=== PATIENT | female | born 1940 | race Caucasian/White ===

== ENCOUNTER 2017-02-01 07:12 | Inpatient (IN) | payer OTHER ==
[2017-01-17 17:35] VITALS: BMI 36.0
--- NOTE | 2017-01-31 12:13 | PAT Medication Instructions ---
Service Date Jan 31, 2017. Current Home Medication List Acetaminophen (Tylenol Arthritis Ext Rel), 2 CAP PO QAM PRN for Pain Aspirin (Aspirin Ec), 81 MG PO QAM Cholecalciferol (Vitamin D), 1 TAB PO QAM Gabapentin (Gabapentin), 1,200 MG PO HS Hctz/Lisinopril (Lisinopril/Hctz 10/12.5 Mg), 1 TAB PO QAM Omeprazole (Prilosec), 20 MG PO QAM Sertraline Hcl (Zoloft), 50 MG PO HS Simvastatin (Zocor), 40 MG PO HS Medication Instructions For Your Scheduled Surgery Aspirin (Aspirin Ec), 81 MG PO QAM (hold two weeks prior to surgery per surgeon instructions) - Hold the following medications the morning of surgery: Hctz/Lisinopril (Lisinopril/Hctz 10/12.5 Mg), 1 TAB PO QAM Cholecalciferol (Vitamin D), 1 TAB PO QAM - Take the following medications the morning of surgery with a sip of water: Omeprazole (Prilosec), 20 MG PO QAM Acetaminophen (Tylenol Arthritis Ext Rel), 2 CAP PO QAM PRN for Pain (if needed) - Take the following medications as scheduled the night before surgery: Sertraline Hcl (Zoloft), 50 MG PO HS Simvastatin (Zocor), 40 MG PO HS Gabapentin (Gabapentin), 1,200 MG PO HS If you have any questions please call us at [phone] or [phone] ( [place]) or [phone]
[2017-02-01] VITALS (8 sets, daily range): BP systolic 108–170; BP diastolic 69–104; PULSE 76–96; TEMP 36.4–36.6; O2SAT 91–96; Ht 152.4 cm; Wt 87.1 kg
[~2017-02-01] VITALS: Ht 152.4 cm; Wt 87.1 kg
[~2017-02-01 07:12] MED LIST: ACET1TAB84 PO; ASPI81TA28 PO; CEFAZOLIN 2000 MG/60 ML D5W IV SCH; CHOL100010 PO; CeleBREX 200 MG CAP PO SCH; LACTATED RINGER'S 1000ML 1,000 ML IV SCH; LSN/10125 PO; NRN300 PO; PREGABALIN 75 MG CAP PO SCH; PRLSR20 PO; SERT1TAB71 PO; SIMV40TA2 PO
[2017-02-01] MEDS ORDERED: ATROPINE SULFATE 0.1 MG/ML 5ML SYR IV PRN (07:30)
[2017-02-01] MEDS ORDERED: ONDANSETRON INJ 2 MG/ML 2 ML VIAL IV PRN ×2 (07:30→11:15)
[2017-02-01] MEDS ORDERED: EpHEDrine SULFATE INJ 50 MG/ML AMP IV PRN (07:30)
[2017-02-01] MEDS ORDERED: FENTANYL CITRATE INJ 50 MCG/1 ML 2 ML VIAL IV PRN (07:30)
[2017-02-01] MEDS ORDERED: HYDROmorphone INJ 0.5 MG/0.5 ML SYR IV PRN (07:30)
--- NOTE | 2017-02-01 08:14 | HISTORY & PHYSICAL EXAMINATION ---
DATE OF ADMISSION: 02/01/2017 CHIEF COMPLAINT: Low back pain and bilateral hip pain, with neurogenic claudication. HISTORY OF PRESENT ILLNESS: This 76-year-old woman presents for evaluation of the above. She has symptoms consistent with neurogenic claudication and radicular pain in the lower extremities due to lumbar spinal stenosis. She has failed to respond to extensive conservative treatment including physical therapy and epidural injections. Her workup and imaging have demonstrated she has grade 1 degenerative spondylolisthesis L4-L5 with associated spinal stenosis. Due to the symptoms her quality of life has been severely curtailed; she cannot walk or stand for any significant length of time. Due to failure of conservative treatments, she desires surgery. She denies recent malignancy or incontinence. PAST MEDICAL HISTORY: Acid reflux, gallbladder disease, hiatal hernia, hyperlipidemia, hypertension, obesity, sleep apnea and spinal stenosis. PAST SURGICAL HISTORY: Surgical mesh implant, bladder repair, , hysterectomy and cholecystectomy. ALLERGIES: None. MEDICATIONS: Lisinopril, simvastatin, gabapentin, sertraline, omeprazole, baby aspirin and iron supplements. SOCIAL HISTORY: The patient is single and does not use alcohol or tobacco. FAMILY HISTORY: Notable for arthritis, cardiovascular disease, hypertension, diabetes and high cholesterol. REVIEW OF SYSTEMS: Notable for some fatigue, occasional abdominal pain, urge incontinence. She denied chest pain, shortness of breath or dyspnea on exertion. PHYSICAL EXAMINATION: The patient stands 60 inches tall and weighs 200 pounds with a BMI of 39. She answers questions appropriately and has normal affect. She stands and walks with a deliberate gait with no kael ataxia. She has somewhat limited lumbar range of motion due to body habitus and discomfort. She has negative straight leg raise bilaterally, nontender hip range of motion in flexion and internal rotation. She has 5/5 strength in motor testing of both lower extremities. She has symmetrically diminished DTRs of the patella. No clonus of the ankles. She has palpable distal pulses in lower extremities. Normal appearing skin of the lumbar spine. No obvious scoliosis or skin lesions. She has regular rate and rhythm on auscultation of heart and clear lungs to auscultation bilaterally. She has intact sensation to light touch in both lower extremities and in all dermatomes. X-rays and MRI were reviewed as above. She has grade 1 degenerative spondylolisthesis L4-L5 and spinal stenosis L4-L5. ASSESSMENT AND PLAN: L4-L5 spinal stenosis and spondylolisthesis. I recommended a L4-L5 decompression with fusion procedure. Risks were reviewed. The patient is agreeable and desires to proceed. IVANIA
[2017-02-01] MEDS ORDERED: MIDAZOLAM HCL 1 MG/ML 2ML VIAL ONE (08:48)
[2017-02-01] MEDS ORDERED: FENTANYL CITRATE INJ 50 MCG/1 ML 2 ML VIAL ONE ×3 (08:48→10:15)
[2017-02-01] MEDS ORDERED: BUPIVACAINE/EPINEPHRINE 0.5% MPF 1:200,000 30 ML VIAL ONE (09:12)
[2017-02-01] MEDS ORDERED: THROMBIN FOR SOLN 20000 UNIT KIT ONE (09:12)
[2017-02-01] MEDS ORDERED: THROMBIN 5000 UNITS KIT ONE (09:12)
[2017-02-01] MEDS ORDERED: BACITRACIN 50000 UNIT VIAL ONE (09:13)
[2017-02-01] MEDS ORDERED: HEPARIN SOD (PORCINE) 1000 UNIT/ML 10 ML VIAL ONE (09:13)
[2017-02-01] MEDS ORDERED: HYDROmorphone INJ 2 MG/ML SYR/VIAL ONE ×2 (10:09→11:17)
[2017-02-01] MEDS ORDERED: FLOSEAL HEMOSTATIC MATRIX 10ML TOP ONE (10:53)
[2017-02-01] MEDS ORDERED: SODIUM CHLORIDE 0.9% 1000ML 1,000 ML IV SCH (11:06)
--- NOTE | 2017-02-01 11:06 | [facility] Post Operative Brief Note ---
Immediate Operative Summary Operative Date Feb 01, 2017. Pre-Operative Diagnosis L4-L5 spinal stenosis and spondylolisthesis Post-Operative Diagnosis same as pre-operative Procedure(s) Performed L4-L5 Decompression and Transforaminal Lumbar Interbody Fusion, Use of Arteriocyte and Infuse Surgeon Dr. Luis Carlos Garcia Mon[place] Carver Surgeon(s) Jhonatan Block PA-C Estimated Blood Loss 125ml Findings dict Specimens none per surgeon
[2017-02-01] MEDS ORDERED: LIDOCAINE HCL 2% 2 ML VIAL (20MG/ML) ONE (11:07)
[2017-02-01] MEDS ORDERED: METOPROLOL TARTRATE 1 MG/ML VIAL ONE (11:07)
[2017-02-01] MEDS ORDERED: PROPOFOL IV EMULSION 10 MG/ML 20 ML VIAL IV ONE (11:07)
[2017-02-01] MEDS ORDERED: ROCURONIUM BROMIDE 10 MG/ML 5 ML VIAL ONE (11:07)
[2017-02-01] MEDS ORDERED: LABETALOL HCL IV 5 MG/ML 20ML IV ONE (11:07)
[2017-02-01] MEDS ORDERED: DEXAMETHASONE SOD INJ 4 MG/ML VIAL ONE (11:07)
[2017-02-01] MEDS ORDERED: ONDANSETRON INJ 2 MG/ML 2 ML VIAL ONE ×2 (11:07→11:20)
[2017-02-01] MEDS ORDERED: MoRPHine SULFATE 1 MG/ML 50 ML PCA CASS IV PRN (11:15)
[2017-02-01] MEDS ORDERED: ACETAMINOPHEN IV 100 ML IV PRN (11:15)
[2017-02-01] MEDS ORDERED: NALOXONE HCL 0.4 MG/1 ML VIAL/CARP IV PRN (11:15)
[2017-02-01] MEDS ORDERED: ALUMINUM/MAGNESIUM SUSP 30 ML UDC PO PRN (11:15)
[2017-02-01] MEDS ORDERED: METOCLOPRAMIDE HCL INJ 5 MG/ML 2 ML VIAL IV PRN (11:15)
[2017-02-01] MEDS ORDERED: MAGNESIUM HYDROXIDE SUSP 30 ML UDC PO PRN (11:15)
[2017-02-01] MEDS ORDERED: hydrOXYzine HCL 25 MG TAB PO PRN (11:15)
[2017-02-01] MEDS ORDERED: DC PCA PRN (11:15)
[2017-02-01] MEDS ORDERED: PROMETHAZINE HCL INJ 12.5 MG in SODIUM CHLORIDE 0.9% 50ML 50 ML IV PRN (11:15)
[2017-02-01] MEDS ORDERED: SOD PHOSPHATE/SOD BIPHOSPHATE ENEMA 132 ML BTL PR PRN (11:15)
[2017-02-01] MEDS ORDERED: LORAZEPAM INJ 0.5 MG in SYRINGE 0 ML IV PRN (11:15)
[2017-02-01] MEDS ORDERED: FAMOTIDINE 20 MG TAB PO PRN (11:15)
[2017-02-01] MEDS ORDERED: LORAZEPAM 0.5 MG TAB PO PRN (11:15)
[2017-02-01] MEDS ORDERED: BISACODYL 10 MG SUPP PR PRN (11:15)
[2017-02-01] MEDS ORDERED: GLYCOPYRROLATE INJ 0.2 MG/ML VIAL ONE (11:20)
[2017-02-01] MEDS ORDERED: NEOSTIGMINE METHYLSULFATE 1 MG/ML 10ML VIAL ONE (11:20)
[2017-02-01] MEDS ORDERED: MoRPHine SULFATE 1 MG/ML 50 ML PCA CASS ONE (11:52)
--- NOTE | 2017-02-01 11:56 | DIAGNOSTIC IMAGING REPORT ---
LUMBAR SPINE, INTRAOPERATIVE FLUOROSCOPY HISTORY: L4-5 decompression and fusion. FLUOROSCOPY TIME: 16 seconds. FINDINGS: Intraoperative fluoroscopy was provided for the lumbar spine. 2 fluoroscopic spot images were obtained. L4-L5 posterior decompression and fusion. The hardware appears intact. IMPRESSION: Fluoroscopy provided for a L4-5 posterior decompression and fusion. Electronically signed by: Marvin Salazar M.D. 02/01/2017 11:54 AM Dictated Date/Time: 02/01/2017 11:53 AM
--- NOTE | 2017-02-01 12:52 | Anesthesiology Progress Note ---
Anesthesia Post Op Note Date & Time Feb 01, 2017 at 12:51 Vital Signs Pain Intensity: 5 Vital Signs Past 12 Hours Date Time Temp Pulse Resp B/P Pulse Ox O2 Delivery O2 Flow Rate FiO2 02/01/17 12:40 83 16 157/85 93 Nasal Cannula 4 02/01/17 12:30 36.4 78 16 153/92 92 Nasal Cannula 4 02/01/17 12:20 70 16 137/93 93 Nasal Cannula 4 02/01/17 12:10 72 14 163/106 93 Nasal Cannula 4 02/01/17 12:00 75 14 153/84 96 Mask 10 02/01/17 11:50 80 16 176/79 94 Mask 10 02/01/17 11:42 36.6 86 20 169/83 92 Mask 10 02/01/17 08:12 36.6 92 18 152/98 93 Room Air Notes Mental Status: alert / awake / arousable, participated in evaluation Pt Amnestic to Procedure: Yes Nausea / Vomiting: adequately controlled Pain: adequately controlled Airway Patency, RR, SpO2: stable & adequate BP & HR: stable & adequate Hydration State: stable & adequate Anesthetic Complications: no major complications apparent
[2017-02-01] MEDS: SODIUM CHLORIDE 0.9% 1000ML 1,000 ML IV SCH ×2 (13:48→23:18)
--- NOTE | 2017-02-01 14:07 | OPERATIVE REPORT ---
DATE OF OPERATION: 02/01/2017 PREOPERATIVE DIAGNOSES: 1. L4-L5 spinal stenosis. 2. L4-L5 degenerative spondylolisthesis -- grade 1. POSTOPERATIVE DIAGNOSIS: Same. PROCEDURES: 1. L4 laminectomy with bilateral L4-L5 medial facetectomies. 2. Nonsegmental pedicle screw instrumentation -- bilateral L4 and L5 with K2M [place] pedicle screws. 3. Posterolateral fusion L4-L5 -- bilateral with Infuse BMP on a collagen sponge, tricalcium phosphate, local bone, bone putty and bone marrow aspirate. 4. Right iliac crest bone marrow aspiration, stem cell concentration with stem cell concentration system and application of bone graft. SURGEON: Dr. Wright. CASKET LINER: Jhonatan Block PA-C. Please note he participated in all portions of the procedure and was critical for performance of procedure, participated in positioning, prepping, draping, retraction, and wound closure. ANESTHESIA: General endotracheal anesthesia. COMPLICATIONS: None. ESTIMATED BLOOD LOSS: Minimal, bleeding was 100 mL. OPERATION AND FINDINGS: PROCEDURE: After identification of patient and operative level, she was brought to the OR where she underwent induction of general anesthesia. She was then positioned prone on Jasvir OR table with all bony prominences well padded. Care was taken to avoid pressure on the periorbital area. Lumbosacral area was sterilely prepped and draped in usual fashion. Antibiotics were administered. Time-out was performed. Level was confirmed and skin incision was localized with lateral fluoroscopy and a spinal needle. I infiltrated the skin with 0.5% Marcaine with epinephrine, made skin incision over the spinous process of L4-L5 and exposed the L4-L5 interlaminar windows. I placed Gelpi retractors, confirmed level with fluoroscopy and marked the operative level. I then did a midline laminectomy of L4 with removal of spinous process lamina and ligamentum flavum. I then used an osteotome to remove the medial facets at L4-5 which were markedly hypertrophied. I then completed decompression with Kerrisons reconfirmed level with screw placement. I placed screws bilaterally at L4 and L5 with K2M [place] pedicle screws. Screws had reasonable purchase. She was noted to be slightly osteopenic. I then lowered the Felix frame to restore lordosis, applied rods and endcaps from L4-L5 bilaterally. I final tightened all endcaps and decorticated transverse process of L4-L5 with high speed bur. After decortication I obtained bone marrow aspirate from the right iliac crest via separate stab incision with a Jamshidi needle concentrate with the stem cell concentration and applied to bone graft medical physicist. I then packed the lateral gutters bilaterally with bone graft mixture containing Infuse BMP on a collagen sponge, tricalcium phosphate, bone marrow aspirate, local bone and bone putty. I then placed JOHN drain deep and closed in layered fashion. I did irrigate prior to bone grafting. Please note that during closure it was noted that the counts were incorrect. There was 1 missing Ray-Tima, fluoroscopy was brought in and it was noted to be packed in with bone graft. I then opened the suture line and removed the Ray-Tima, redid the counts which were correct and then reclosed. Final counts were correct and repeat final x-rays confirmed there was no further Ray-Tima visible in the field on biplanar fluoroscopy. The patient was extubated and brought to PACU in stable condition. I attest to the content of the Intraoperative Record and any orders documented therein. Any exceptio ns are noted below.
--- NOTE | 2017-02-01 15:46 | Progress Note ---
Progress Note Date of Service Feb 01, 2017. Progress Note Patient was seen and evaluated with Sarah CASTRO. Patient is status post lumbar surgery day 1. Pain is controlled, no chest pain, nausea, vomiting,fever, chills, Exam: Gen- AAOX3, no distress Lungs- No wheezing, clear Heart-s1, s2 normal, no murmurs Back- s/p surgery Ext- no edema A/P 1. S/P Lumbar surgery -POD # 0 -Pain control, PT/OT per primary team -H & H monitoring 2. HTN -Continue with home meds 3. GERD 4. JONNY 5. Hyperlipidemia 6. DVT prophylaxis -SCDS/TEDS per primary team Agree with A/P of Sarah CASTRO
[2017-02-01] MEDS: DEXAMETHASONE INJ 6 MG in SYRINGE 0 ML IV SCH (18:14)
[2017-02-01] MEDS: CEFAZOLIN IV 2,000 MG in DEXTROSE 5% 50ML 50 ML IV SCH (18:14)
--- NOTE | 2017-02-01 19:57 | Medical Consult ---
Consultation Date of Consultation: Feb 01, 2017. ~ 14:30 Attending Physician: Luis Carlos Wright M.D. Reason for Consultation: Post Op Medical Management History of Present Illness 76 year old female s/p L4-5 decompression and fusion today by Dr. Wright. Patient has been having increasing low back pain with radiation into the hips and lower extremities. She failed outpatient conservative measures and therefore presented for the planned procedure today. Post operatively the patient is doing well. She reports her pain is well controlled. She is somewhat lethargic but arouses to verbal stimuli. She denies chest pain and shortness of breath. No lightheadedness or dizziness. She denies abdominal pain and nausea. She denies numbness or tingling to the lower extremities. Past Medical/Surgical History Medical Problems: (1) Depression Status: Chronic (2) GERD (gastroesophageal reflux disease) Status: Chronic (3) HLD (hyperlipidemia) Status: Chronic (4) HTN (hypertension) Status: Chronic Surgical Problems: (1) H/O bladder repair surgery Status: Chronic (2) History of hysterectomy Status: Chronic (3) Hx of cholecystectomy Status: Chronic Family History FH: [place] (myocardial infarction) MOTHER Social History Smoking Status: Never Smoker Alcohol Use: occasionally Allergies Coded Allergies: No Known Allergies (Unverified , 02/01/17) Home Medications Vitamin D (Cholecalciferol) 1,000 Unit Tab 1 Tab PO QAM Tylenol Arthritis Ext Rel (Acetaminophen) 650 Mg Cplt 2 Cap PO QAM PRN Aspirin Ec (Aspirin) 81 Mg Tab 81 Mg PO QAM Zocor (Simvastatin) 40 Mg Tab 40 Mg PO HS Zoloft (Sertraline Hcl) 50 Mg Tab 50 Mg PO HS Prilosec (Omeprazole) 20 Mg Capcr 20 Mg PO QAM Lisinopril/Hctz 10/12.5 Mg (HCTZ/Lisinopril) 1 Ea Tab 1 Tab PO QAM Gabapentin 300 Mg Cap 1,200 Mg PO HS Current Inpatient Medications Current Inpatient Medications Medications (Trade) Dose Ordered Sig/Mike Route Start Time Stop Time Status Last Admin Dose Admin Lactated Ringer's (Lr 1000ml) 1,000 ml @ 15 mls/hr Q24H IV 02/01/17 06:00 02/02/17 05:59 02/01/17 08:38 15 MLS/HR Aspirin (Ecotrin Tab) 81 mg QAM PO 02/02/17 09:00 03/04/17 08:59 Gabapentin (Neurontin Tab) 1,200 mg HS PO 02/01/17 21:00 03/03/17 20:59 Sertraline HCl (Zoloft Tab) 50 mg HS PO 02/01/17 21:00 03/03/17 20:59 Simvastatin (Zocor Tab) 40 mg HS PO 02/01/17 21:00 03/03/17 20:59 Pantoprazole Sodium 40 mg 40 mg QAM PO 02/02/17 09:00 03/04/17 08:59 Dexamethasone Sodium Phosphate 6 mg/Syringe 1.5 ml @ 1 mls/min Q8H IV 02/01/17 18:00 02/02/17 10:02 02/01/17 18:14 1 MLS/MIN Promethazine HCl/ Sodium Chloride (Phenergan Inj/ Nss 50ml) 50.5 ml @ 202 mls/hr Q6H PRN IV 02/01/17 11:15 03/03/17 11:14 Ondansetron HCl (Zofran Inj) 4 mg Q6H PRN IV 02/01/17 11:15 03/03/17 11:14 Metoclopramide HCl (Reglan Inj) 10 mg Q6H PRN IV 02/01/17 11:15 03/03/17 11:14 Lorazepam 0.5 mg 0.5 mg Q8H PRN PO 02/01/17 11:15 03/03/17 11:14 Lorazepam 0.5 mg/ Syringe 0.25 ml @ 1 mls/min Q8H PRN IV 02/01/17 11:15 03/03/17 11:14 Sodium Chloride (Nss 1000ml) 1,000 ml @ 75 mls/hr [id number] IV 02/01/17 11:06 03/03/17 11:05 02/01/17 13:48 75 MLS/HR Polyethylene (Miralax Powder Packet) 17 gm Q6 PO 02/03/17 06:00 03/05/17 05:59 Bisacodyl (Dulcolax Supp) 10 mg DAILY PRN VA 02/01/17 11:15 03/03/17 11:14 Magnesium Hydroxide (Milk Of Magnesia Susp) 30 ml DAILY PRN PO 02/01/17 11:15 03/03/17 11:14 Hydromorphone HCl (Dilaudid Inj) 0.5 mg Q3H PRN IV 02/02/17 06:01 02/16/17 06:00 Oxycodone HCl 5-10mg prn moderate to sev... Q4H PRN PO 02/02/17 06:00 02/16/17 05:59 Cefazolin Sodium 2000 mg/Dextrose 60 ml @ 100 mls/hr Q8H IV 02/01/17 18:00 02/02/17 02:35 02/01/17 18:14 100 MLS/HR Acetaminophen (Ofirmev Iv) 100 ml @ 400 mls/hr Q8H PRN IV 02/01/17 11:15 03/03/17 11:14 Naloxone HCl (Narcan Inj) 0.1 mg Q5M PRN IV 02/02/17 06:00 03/04/17 05:59 Senna/Docusate Sodium (Senokot S Tab) 2 tab HS PO 02/01/17 21:00 03/03/17 20:59 Sodium Biphosphate/ Sodium Phosphate (Fleet Enema) 132 ml ONE PRN VA 02/01/17 11:15 03/03/17 11:14 Hydroxyzine HCl (Vistaril Tab) 25 mg Q8H PRN PO 02/01/17 11:15 03/03/17 11:14 Al Hydroxide/Mg Hydroxide (Maalox Susp) 30 ml Q6H PRN PO 02/01/17 11:15 03/03/17 11:14 Famotidine (Pepcid Tab) 20 mg Q12 PRN PO 02/01/17 11:15 03/03/17 11:14 Diphenhydramine HCl (Benadryl Cap) 25 mg Q6H PRN PO 02/01/17 11:15 03/03/17 11:14 Miscellaneous Information (Discontinue BAKERY CLERK) 1 ea DIRECTED PRN N/A 02/01/17 11:15 02/02/17 06:00 Naloxone HCl (Narcan Inj) 0.1 mg Q5M PRN IV 02/01/17 11:15 02/02/17 06:00 Morphine Sulfate 50 mg 50 mg PRN PRN IV 02/01/17 11:15 02/02/17 06:00 02/01/17 19:03 50 MG Sodium Chloride (Nss 1000ml) 1,000 ml @ 15 mls/hr Q24H IV 02/01/17 11:06 02/02/17 06:00 Hydromorphone HCl (Dilaudid Inj) 1 mg Q3H PRN IV 02/02/17 06:01 02/16/17 06:00 Lisinopril (Zestril Tab) 10 mg QAM PO 02/02/17 09:00 03/04/17 08:59 Review of Systems 10 point review of systems was completed with the pertinent positives and negatives noted per the HPI Physical Exam Date Time Temp Pulse Resp B/P Pulse Ox O2 Delivery O2 Flow Rate FiO2 02/01/17 19:28 Nasal Cannula 2.0 02/01/17 19:27 36.6 96 17 108/71 94 Room Air 02/01/17 16:03 Nasal Cannula 4.0 02/01/17 15:57 36.6 90 16 119/77 95 Nasal Cannula 02/01/17 15:03 36.6 88 18 112/69 96 Nasal Cannula 4.0 02/01/17 14:46 36.6 79 20 151/78 93 Nasal Cannula 4.0 02/01/17 14:00 36.4 76 16 118/77 94 Nasal Cannula 4.0 02/01/17 13:05 36.6 83 20 134/81 91 Nasal Cannula 4.0 02/01/17 13:04 Nasal Cannula 4.0 02/01/17 12:40 83 16 157/85 93 Nasal Cannula 4 02/01/17 12:30 36.4 78 16 153/92 92 Nasal Cannula 4 02/01/17 12:20 70 16 137/93 93 Nasal Cannula 4 02/01/17 12:10 72 14 163/106 93 Nasal Cannula 4 02/01/17 12:00 75 14 153/84 96 Mask 10 02/01/17 11:50 80 16 176/79 94 Mask 10 02/01/17 11:42 36.6 86 20 169/83 92 Mask 10 02/01/17 08:12 36.6 92 18 152/98 93 Room Air General Appearance: no apparent distress Head: normocephalic Eyes: normal inspection ENT: hearing grossly normal Neck: supple, no JVD Respiratory/Chest: lungs clear, normal breath sounds, no respiratory distress Cardiovascular: regular rate, rhythm, no edema, normal peripheral pulses Abdomen/GI: normal bowel sounds, non tender, soft Back: + pertinent finding (s/p back surgery, drain in place draining bloody drainage, pedal pushes and pulls strong BL) Extremities/Musculoskelatal: normal inspection, no calf tenderness Neurologic/Psych: no motor/sensory deficits, oriented x 3, + pertinent finding (lethargic but arouses to verbal stimuli, falls back to sleep quickly) Skin: normal color, warm/dry Assessment & Plan S/P L4-5 DECOMPRESSION / FUSION - POD#0 - activity and wound care orders as per ortho - pain control with bowel regimen - PT/OT - monitor H/H for acute blood loss anemia and transfuse blood products PRN HTN - continue lisinopril - holding HCTZ to prevent perioperative dehydration GERD - continue PPI HLD - continue statin DEPRESSION - continue sertraline DVT PROPHYLAXIS - deferred to ortho Thank you for this consultation. We will follow the patient with you during their hospital stay. You can reach a member of the [facility] Hospitalist Team 02/05 via pager @ .
[2017-02-01] MEDS: GABAPENTIN 600 MG TAB PO SCH (20:40)
[2017-02-01] MEDS: SERTRALINE HCL 50 MG TAB PO SCH (20:41)
[2017-02-01] MEDS: SIMVASTATIN 40 MG TAB PO SCH (20:41)
[2017-02-01] MEDS: DOCUSATE SODIUM/SENNA 50/8.6MG TAB PO SCH (20:41)
[2017-02-02] MEDS: DEXAMETHASONE INJ 6 MG in SYRINGE 0 ML IV SCH ×2 (02:13→09:27)
[2017-02-02] MEDS: CEFAZOLIN IV 2,000 MG in DEXTROSE 5% 50ML 50 ML IV SCH (02:13)
[2017-02-02 04:10] VITALS: BP 109/67; PULSE 90; TEMP 36.6; O2SAT 93
[2017-02-02 05:13] LABS: BASO % 0.1 %; BASO ABS # 0.01 K/uL (0-0.2); COMPLETE YES; HEMATOCRIT 35.7 % (37-47); IG% 0.3 %; LYMPH % 11.1 %; LYMPH ABS # 1.32 K/uL (1.2-3.4); MEAN CELL VOLUME 93.5 fL (80-100); MEAN CORPUSCULAR HEMOGLOBIN 31.4 pg (25-34); MEAN CORPUSCULAR HGB CONC 33.6 g/dl (32-36); MEAN PLATELET VOLUME 9.3 fL (7.4-10.4); NEUT % 80.5 %; PLATELET COUNT 226 K/uL (130-400); RED BLOOD COUNT 3.82 M/uL (4.2-5.4); WHITE BLOOD COUNT 11.86 K/uL (4.8-10.8)
[2017-02-02 05:39] LABS: BUN/CREATININE RATIO 17.4 (10-20); CALCIUM 8.1 mg/dl (8.5-10.1); CREATININE 0.73 mg/dl (0.60-1.20); POTASSIUM 4.6 mmol/L (3.5-5.1)
[2017-02-02] MEDS ORDERED: NALOXONE HCL 0.4 MG/1 ML VIAL/CARP IV PRN (06:00)
[2017-02-02] MEDS ORDERED: NURSING DECISION MEDICATION ORDER SCH (06:00)
[2017-02-02] MEDS ORDERED: HYDROmorphone INJ 1 MG/ML SYR IV PRN (06:01)
[2017-02-02] MEDS ORDERED: HYDROmorphone INJ 0.5 MG/0.5 ML SYR IV PRN (06:01)
[2017-02-02 07:49] VITALS: BP 111/68; PULSE 84; TEMP 36.4; O2SAT 92
[2017-02-02] MEDS ORDERED: LISINOPRIL/HCTZ 10/12.5MG TAB PO SCH (09:00)
[2017-02-02] MEDS: ASPIRIN 81 MG ECTAB PO SCH (09:26)
[2017-02-02] MEDS: PANTOprazole SOD 40 MG TAB PO SCH (09:27)
[2017-02-02] MEDS: LISINOPRIL 10 MG TAB PO SCH (09:27)
[2017-02-02] MEDS: OXYCODONE HCL IR 5 MG TAB (IMMEDIATE RELEASE) PO PRN ×2 (09:34→18:07)
--- NOTE | 2017-02-02 10:21 | Orthopedic Progress Note ---
Orthopedic Progress Note Date of Service Feb 02, 2017. Subjective Post OP Day: 1 Reports: feeling well, pain controlled w PO medications, Denies: SOB, calf pain , chest pain, complaints, light headedness, nausea / vomiting, using AIR PLANT ENGINEER Objective calves soft nontender, N/V intact, dressing C/D/I, A&O x3, hemovac drainage Date Time Temp Pulse Resp B/P Pulse Ox O2 Delivery O2 Flow Rate FiO2 02/02/17 07:49 36.4 84 17 111/68 92 Room Air 02/02/17 07:30 Room Air 02/02/17 04:10 36.6 90 18 109/67 93 CPAP 02/02/17 00:20 Nasal Cannula 2.0 02/01/17 22:53 36.6 94 18 139/69 94 CPAP 02/01/17 19:28 Nasal Cannula 2.0 02/01/17 19:27 36.6 96 17 108/71 94 Room Air 02/01/17 16:03 Nasal Cannula 4.0 02/01/17 15:57 36.6 90 16 119/77 95 Nasal Cannula 02/01/17 15:03 36.6 88 18 112/69 96 Nasal Cannula 4.0 02/01/17 14:46 36.6 79 20 151/78 93 Nasal Cannula 4.0 02/01/17 14:00 36.4 76 16 118/77 94 Nasal Cannula 4.0 02/01/17 13:05 36.6 83 20 134/81 91 Nasal Cannula 4.0 02/01/17 13:04 Nasal Cannula 4.0 02/01/17 12:40 83 16 157/85 93 Nasal Cannula 4 02/01/17 12:30 36.4 78 16 153/92 92 Nasal Cannula 4 02/01/17 12:20 70 16 137/93 93 Nasal Cannula 4 02/01/17 12:10 72 14 163/106 93 Nasal Cannula 4 02/01/17 12:00 75 14 153/84 96 Mask 10 02/01/17 11:50 80 16 176/79 94 Mask 10 02/01/17 11:42 36.6 86 20 169/83 92 Mask 10 Laboratory Results 24 Hours: Test 02/02/17 04:45 White Blood Count 11.86 K/uL Red Blood Count 3.82 M/uL Hemoglobin 12.0 g/dL Hematocrit 35.7 % Mean Corpuscular Volume 93.5 fL Mean Corpuscular Hemoglobin 31.4 pg Mean Corpuscular Hemoglobin Concent 33.6 g/dl Platelet Count 226 K/uL Mean Platelet Volume 9.3 fL Neutrophils (%) (Auto) 80.5 % Lymphocytes (%) (Auto) 11.1 % Monocytes (%) (Auto) 8.0 % Eosinophils (%) (Auto) 0.0 % Basophils (%) (Auto) 0.1 % Neutrophils # (Auto) 9.54 K/uL Lymphocytes # (Auto) 1.32 K/uL Monocytes # (Auto) 0.95 K/uL Eosinophils # (Auto) 0.00 K/uL Basophils # (Auto) 0.01 K/uL Assessment & Plan Assessment: doing well, walked to bathroom, leg pain improved. Plan: SCDs, start PT, HD stable, hct acceptable, d/c tomorrow
[2017-02-02] MEDS ORDERED: RXC5 PO (10:35)
--- NOTE | 2017-02-02 10:36 | Discharge Instructions ---
Discharge Instructions Date of Service Feb 02, 2017. Admission Reason for Admission: Lumbar Spinal Stenosis Discharge Discharge Diagnosis / Problem: same Discharge Goals Goal(s): Decrease discomfort Activity Recommendations Activity Limitations: per Instructions/Follow-up section . Instructions / Follow-Up Instructions / Follow-Up ACTIVITY RECOMMENDATIONS: SELF CARE INSTRUCTIONS AFTER THORACIC/LUMBAR FUSIONS 1. You may walk to your tolerance. It is good exercise for your legs and back. Expect some back and intermittent leg aches and pains. 2. You may perform "counter-top" level activities (make a sandwich, frandy with a project, etc.). 3. No bending or lifting of more than 10 pounds or back twisting of any nature (roll like a log when turning in bed). 4. You may ride in a car for 20-30 minutes at a time. No driving until after your first visit with your doctor. 5. Frequent changes of position and restricting sitting to 30 minutes at a time will help limit the amount of back spasms and stiffness you may experience. 6. You may discontinue the use of ambulatory aids (cane, crutches, etc.) once your strength and confidence allow. 7. You may financial aid counselor the shower and let water strike your incision when you arrive home at least once daily. Do not take a tub bath, sit in a hot tub or go into a swimming pool until after your first recheck in the office. SPECIAL CARE INSTRUCTIONS: VERY IMPORTANT TO READ AND REVIEW A. Your surgical incision has been closed with a cosmetic suture under the skin that will dissolve in about 6 weeks. In 14 days, you can use a pair of clean scissors and cut the suture that is left outside of the skin at the ends of your incision. 1. The small skin tapes can be removed 7 days after surgery if they have not fallen off by that point. 2. You may keep the wound open to air as much as possible to promote healing after post-op day number 5 unless told otherwise by your doctor. 3. If you think the wound looks like it is becoming infected (redness or worsening drainage) and/or you are experiencing fever, chill or worsening back pain and muscle spasms, contact the office so that we may evaluate you as soon as possible. B. Complications are uncommon, but please contact us if you have any signs or symptoms of: 1. wound infection (fever higher than 102.5 degrees F, redness, separation of wound, drainage, or increasing pain from the incision) 2. blood clots in legs (pain, swelling, redness and warmth in legs) 3. urinary tract infection (fever higher than 102.5 degrees F, burning upon urination or increased frequency of urination) 4. nerve problems (inability to walk on your toes or heels, numbness, loss of bowel or bladder control) 5. any other symptoms that concern you C. Please call the office at if you have any concerns or questions about your operation or recovery. D. No smoking! Smoking drastically decreases the chance of a solid fusion. E. Do not take any anti-inflammatory medications (Indocin, Advil, Motrin, Aspirin, Naprosyn, etc.) as these may inhibit the chance of a solid fusion. Tylenol is okay to take for pain. MANAGING PAIN AFTER SPINAL SURGERY 1. Narcotic medication is intended for short-term use and will be provided for surgical pain. Surgical pain usually lasts for a period of 4-6 weeks. Narcotic medication includes Percocet, Vicodin, Darvocet, Tylenol #3 or Lortab. 2. Longer-term pain is more appropriately treated with non-narcotic medication such as Tylenol ES. 3. Muscle spasm is not appropriately treated with narcotics. Muscle relaxers such as Soma, Flexeril or Skelaxin can be used along with Tylenol ES. 4. Remember that we all live with some "aches and pains". This is not unusual or uncommon after an injury or as we get older. a. Back pain is expected and may include muscle spasms for 4 to 6 weeks after surgery. The pain should gradually improve. If the pain worsens for no apparent reason, please contact the office. b. Intermittent leg pain may also be experienced and should not be concerned about unless it worsens for no apparent reason. If so, please contact the office. 5. We will provide appropriate medication within the normal guidelines of their prescribed use. We will also be very cautious and aware of potential abuse and extended duration of patients' medication needs. a. Pain medications are for your comfort and to assist with sleep and rest so that the tissue can heal. They are not provided in order to return to normal activity and should not be used through the day. To do so or worsening pain at night can result from ongoing tissue damage and development of tolerance to the prescribed medicine. 6. Please allow 2-3 days to process refills. Prescriptions will not be mailed but must be picked up at the office. FOLLOW UP VISIT: Keep your scheduled follow-up appointment. Any questions, please call the office at . Current Hospital Diet Patient's current hospital diet: Regular Diet Discharge Diet Recommended Diet: Regular Diet Procedures Procedures Performed: L4-L5 Decompression and Posterior Instrumented Fusion, Use of Arteriocyte and Infuse Pending Studies Studies pending at discharge: no Medical Emergencies . Who to Call and When: Medical Emergencies: If at any time you feel your situation is an emergency, please call 911 immediately. . Non-Emergent Contact Non-Emergency issues call your: Surgeon . "Provider Documentation" section prepared by Luis Carlos Wright. . VTE Core Measure Inpt VTE Proph given/why not?: SCD's [place] Drug Monitoring Program Search Results: patient reviewed within database, no issues identified
[2017-02-02 10:59] VITALS: BP 111/68; PULSE 84; TEMP 36.4; O2SAT 92
--- NOTE | 2017-02-02 12:59 | Anesthesiology Progress Note ---
Anesthesia Post Op Note Date & Time Feb 02, 2017 at 12:58 Vital Signs Pain Intensity: 3.0 Vital Signs Past 12 Hours Date Time Temp Pulse Resp B/P Pulse Ox O2 Delivery O2 Flow Rate FiO2 02/02/17 10:59 36.4 84 18 111/68 92 Room Air 02/02/17 07:49 36.4 84 17 111/68 92 Room Air 02/02/17 07:30 Room Air 02/02/17 04:10 36.6 90 18 109/67 93 CPAP Notes Mental Status: alert / awake / arousable, participated in evaluation Pt Amnestic to Procedure: Yes Nausea / Vomiting: adequately controlled Pain: adequately controlled Airway Patency, RR, SpO2: stable & adequate BP & HR: stable & adequate Hydration State: stable & adequate Anesthetic Complications: no major complications apparent
[2017-02-02 15:37] VITALS: BP 106/70; PULSE 76; TEMP 36.7; O2SAT 92
--- NOTE | 2017-02-02 18:42 | Progress Note ---
Internal Med Progress Note Date of Service: Feb 02, 2017. Provider Documentation: SUBJECTIVE: AMBULATED IN [address] DENIES MUCH PAIN AT SURGERY SITE NO NAUSEA NO COMPLAINTS OBJECTIVE: Vital Signs-as noted below Exam: General-Alert and oriented ENT-normal hearing Neck-no neck masses Lungs-cta b/l no wheezing or crackles Heart-s1 and s2 heard regular rate and rhythm no murmurs Abdomen-soft bowel sounds present non tender no distension musculoskeletal s/p back surgery dressing and drain intact Extremities-no edema no erythema Neuro-Alert and oriented moves extremities Lab data as noted below. ASSESSMENT & PLAN: 1. S/P Lumbar surgery POD # 1 Pain control, PT/OT per primary team stable 2. HTN stable on home meds will monitor 3. GERD on PPI. 4. Hyperlipidemia on statin 5. DVT prophylaxis SCDS/TEDS per primary team DISPOSITION per primary team Vital Signs: Date Time Temp Pulse Resp B/P Pulse Ox O2 Delivery O2 Flow Rate FiO2 02/02/17 16:00 Room Air 02/02/17 15:37 36.7 76 17 106/70 92 Room Air 02/02/17 10:59 36.4 84 18 111/68 92 Room Air 02/02/17 07:49 36.4 84 17 111/68 92 Room Air 02/02/17 07:30 Room Air 02/02/17 04:10 36.6 90 18 109/67 93 CPAP 02/02/17 00:20 Nasal Cannula 2.0 02/01/17 22:53 36.6 94 18 139/69 94 CPAP 02/01/17 19:28 Nasal Cannula 2.0 02/01/17 19:27 36.6 96 17 108/71 94 Room Air Lab Results: Results Past 24 Hours Test 02/02/17 04:45 Range/Units White Blood Count 11.86 4.8-10.8 K/uL Red Blood Count 3.82 4.2-5.4 M/uL Hemoglobin 12.0 12.0-16.0 g/dL Hematocrit 35.7 37-47 % Mean Corpuscular Volume 93.5 80-100 fL Mean Corpuscular Hemoglobin 31.4 25-34 pg Mean Corpuscular Hemoglobin Concent 33.6 32-36 g/dl Platelet Count 226 130-400 K/uL Mean Platelet Volume 9.3 7.4-10.4 fL Neutrophils (%) (Auto) 80.5 % Lymphocytes (%) (Auto) 11.1 % Monocytes (%) (Auto) 8.0 % Eosinophils (%) (Auto) 0.0 % Basophils (%) (Auto) 0.1 % Neutrophils # (Auto) 9.54 1.4-6.5 K/uL Lymphocytes # (Auto) 1.32 1.2-3.4 K/uL Monocytes # (Auto) 0.95 0.11-0.59 K/uL Eosinophils # (Auto) 0.00 0-0.5 K/uL Basophils # (Auto) 0.01 0-0.2 K/uL RDW Standard Deviation 43.0 36.4-46.3 fL RDW Coefficient of Variation 12.8 11.5-14.5 % Immature Granulocyte % (Auto) 0.3 % Immature Granulocyte # (Auto) 0.04 0.00-0.02 K/uL Sodium Level 141 136-145 mmol/L Potassium Level 4.6 3.5-5.1 mmol/L Chloride Level 105 98-107 mmol/L Carbon Dioxide Level 28 21-32 mmol/L Anion Gap 8.0 3-11 mmol/L Blood Urea Nitrogen 13 7-18 mg/dl Creatinine 0.73 0.60-1.20 mg/dl Est Creatinine Clear Calc Drug Dose 64.3 ml/min Estimated GFR () 92.7 Estimated GFR (Non- 80.0 BUN/Creatinine Ratio 17.4 10-20 Random Glucose 150 70-99 mg/dl Calcium Level 8.1 8.5-10.1 mg/dl
[2017-02-02] MEDS: SERTRALINE HCL 50 MG TAB PO SCH (20:53)
[2017-02-02] MEDS: DOCUSATE SODIUM/SENNA 50/8.6MG TAB PO SCH (20:53)
[2017-02-02] MEDS: SIMVASTATIN 40 MG TAB PO SCH (20:53)
[2017-02-02] MEDS: GABAPENTIN 600 MG TAB PO SCH (20:54)
[2017-02-02 23:01] VITALS: BP 105/59; PULSE 72; TEMP 37; O2SAT 95
[2017-02-03] MEDS ORDERED: POLYETHYLENE (MIRALAX) 17 GM PACK PO SCH (06:00)
[2017-02-03 06:02] VITALS: BP 124/76; PULSE 76; TEMP 36.6; O2SAT 96
[2017-02-03] MEDS: OXYCODONE HCL IR 5 MG TAB (IMMEDIATE RELEASE) PO PRN (07:06)
--- NOTE | 2017-02-03 09:15 | Orthopedic Progress Note ---
Orthopedic Progress Note Date of Service Feb 03, 2017. Subjective Post OP Day: 2 Reports: feeling well, pain controlled w PO medications, Denies: SOB, calf pain , chest pain, complaints, light headedness, nausea / vomiting, using [employer] Objective calves soft nontender, N/V intact, dressing C/D/I, A&O x3, hemovac drainage Date Time Temp Pulse Resp B/P Pulse Ox O2 Delivery O2 Flow Rate FiO2 02/03/17 06:02 36.6 76 16 124/76 96 Room Air 02/02/17 23:15 Room Air 02/02/17 23:01 37.0 72 16 105/59 95 BiPAP 02/02/17 16:00 Room Air 02/02/17 15:37 36.7 76 17 106/70 92 Room Air 02/02/17 10:59 36.4 84 18 111/68 92 Room Air Assessment & Plan Assessment: doing well, walked to bathroom, leg pain improved. Plan: SCDs, start PT, HD stable, hct acceptable, d/c
[2017-02-03] MEDS: LISINOPRIL 10 MG TAB PO SCH (09:59)
[2017-02-03] MEDS: PANTOprazole SOD 40 MG TAB PO SCH (09:59)
[2017-02-03] MEDS: ASPIRIN 81 MG ECTAB PO SCH (09:59)
[2017-02-03 10:18] VITALS: BP 124/76; PULSE 76; TEMP 36.6; O2SAT 96
--- NOTE | 2017-02-25 14:38 | DISCHARGE SUMMARY ---
ADMISSION DIAGNOSIS: Lumbar stenosis. DISCHARGE DIAGNOSIS: same BRIEF ADMISSION HISTORY AND HOSPITAL COURSE: The patient was admitted for elective lumbar spine surgery. She underwent surgery at L4-L5 on the day of admission without complication. She was transferred to the floor and remained in stable condition. She mobilized with therapy, had her pain well controlled with oral pain medication and had return of bowel function. SCDs were used for DVT prophylaxis and after she was deemed hemodynamically and medically stable, she was discharged home in stable condition. Please see electronic medical record for details. IVANIA
== END 2017-02-03 11:15 | disposition home health service (06) | DRG 460 ==
LOC: ENRESERVTM → ENRESERVDT → C.ACU 07:12 → C.3E 09:00
PROVIDERS: ADMIT Orthopaedic Surgery Orthopaedic Surgery of the Spine; ATTEND Orthopaedic Surgery Orthopaedic Surgery of the Spine
PROC: 3E0U0GB Introduction of Recombinant Bone Morphogenetic Protein into Joints, Open Approach (ICD-10-PCS; principal; 2017-02-01 09:45)
PROC: 0SG0071 Fusion of Lumbar Vertebral Joint with Autologous Tissue Substitute, Posterior Approach, Posterior Column, Open Approach (ICD-10-PCS; principal; 2017-02-01 09:45)
PROC: 07DR3ZZ Extraction of Iliac Bone Marrow, Percutaneous Approach (ICD-10-PCS; principal; 2017-02-01 09:45)
DX: M43.16 Spondylolisthesis, lumbar region (principal); T81.509A Unspecified complication of foreign body accidentally left in body following unspecified procedure, initial encounter; M48.06 Spinal stenosis, lumbar region; Y79.3 Surgical instruments, materials and orthopedic devices (including sutures) associated with adverse incidents; Y92.234 Operating room of hospital as the place of occurrence of the external cause; K21.9 Gastro-esophageal reflux disease without esophagitis; E78.5 Hyperlipidemia, unspecified; I10 Essential (primary) hypertension; G47.33 Obstructive sleep apnea (adult) (pediatric); G62.9 Polyneuropathy, unspecified; M19.90 Unspecified osteoarthritis, unspecified site; F32.9 Major depressive disorder, single episode, unspecified; E66.9 Obesity, unspecified; Z68.39 Body mass index [BMI] 39.0-39.9, adult; Z99.89 Dependence on other enabling machines and devices; Z79.82 Long term (current) use of aspirin; Z79.899 Other long term (current) drug therapy